=== PATIENT | male | born 1940 | race Caucasian/White ===

== ENCOUNTER 2016-09-04 10:29 | Emergency (ER) | payer MEDICARE, BC ==
--- NOTE | 2016-09-04 13:15 | RAD ---
INDICATION: Headache and syncope. COMPARISON: Comparison is made with a prior CT of the brain from January 22, 2008. TECHNIQUE: Contiguous axial sections of the brain were obtained from the skull base to the vertex without contrast. FINDINGS: The ventricles, cisterns and sulci are within normal limits. No significant focal abnormality or mass effect is seen. There is no evidence for hemorrhage. No significant focal osseous abnormality is seen. The visualized portion of the paranasal sinuses and mastoid air cells appear clear. IMPRESSION: NO EVIDENCE FOR ACUTE INTRACRANIAL ABNORMALITY.
--- NOTE | 2016-09-04 13:23 | RAD ---
INDICATION: Trauma, neck pain. COMPARISON: There are no prior studies available for comparison. TECHNIQUE: Contiguous axial sections were obtained from the skull base through the T1 vertebra. Images were reconstructed in the sagittal and coronal planes. FINDINGS: The vertebra are in normal alignment. No prevertebral soft tissue swelling or fracture is seen. At the C3-C4 level there is posterior uncinate process spurring. No spinal canal narrowing is present. There is mild neural foraminal narrowing on the right side and mild to moderate neural foraminal narrowing on the left side. At C4-C5 level there is moderate posterior uncinate process spurring which causes mild spinal canal narrowing and moderate bilateral neural foraminal narrowing. At the C5-C6 level there is moderate posterior uncinate process spurring which causes mild spinal canal narrowing and moderate bilateral neural foraminal narrowing. At the C6-C7 level there is posterior lateral uncinate process spurring toward the left side. No spinal canal narrowing is present although there is moderate neural foraminal narrowing on the left side. IMPRESSION: 1. NO EVIDENCE FOR FRACTURE OR SUBLUXATION. 2. MODERATE CERVICAL SPONDYLOSIS.
[2016-09-04 13:51] VITALS: BP 148/80
--- NOTE | 2016-09-04 20:46 | ED ---
Chirag Cox Billy, scribed for Cristobal Prajapati MD on 09/04/16 at 1210 . Head Injury - HPI Summary HPI Summary: Patient is a 75 year-old male coming to [facility] for evaluation of a head injury when he was playing tennis this morning. He states that as he was playing, he tripped and had a mechanical fall and hit the back of his head. Positive LOC lasting approximately 30 seconds, per his , who witnessed the fall. Spontaneous resolution, and the patient has returned to normal behavior, per . He reports headache but denies any neck pain or visual changes. He was nauseated earlier but that has resolved. He takes 81mg ASA daily, no other bloodthinners. - History Of Current Complaint Chief Complaint: EDHeadInjury Stated Complaint: FALL Time Seen by Provider: 09/04/16 12:00 Hx Obtained From: Patient Mechanism Of Injury: Fall From A Standing Position Onset/Duration: Started Hours Ago Severity Currently: Moderate Severity Initially: Moderate Location of Head Injury: Occipital Alleviating Factor(s): Other: - spontaneous resolution Associated Signs And Symptoms: LOC (Time In Secs./Mins/Hrs) - 30 seconds, Nausea , Headache - Allergies/Home Medications Allergies/Adverse Reactions: Allergies Allergy/AdvReac Type Severity Reaction Status Date / Time No Known Allergies Allergy Verified 04/30/14 20:45 PMH/Surg Hx/FS Hx/Imm Hx Endocrine/Hematology History: Denies: Hx Diabetes, Hx Thyroid Disease Cardiovascular History: Denies: Hx Hypertension, Hx Pacemaker/ICD Respiratory History: Reports: Hx Asthma - Childhood Denies: Hx Chronic Obstructive Pulmonary Disease (COPD) GI History: Denies: Hx Ulcer Sensory History: Reports: Hx Hearing Aid Psychiatric History: Denies: Hx Panic Disorder - Cancer History Cancer Type, Location and Year: SKIN CANCER Hx Chemotherapy: No Hx Radiation Therapy: No Hx Palliative Cancer Treatment: No Infectious Disease History: No Infectious Disease History: Denies: Hx Clostridium Difficile, Hx Hepatitis, Hx Human Immunodeficiency Virus (HIV), Hx of Known/Suspected MRSA, Hx Shingles, Hx Tuberculosis, Hx Known/ Suspected VRE, Hx Known/Suspected VRSA, History Other Infectious Disease, Traveled Outside the [place] in Last 30 Days - Family History Known Family History: Positive: Cardiac Disease - Social History Alcohol Use: Occasionally Substance Use Type: Reports: None Smoking Status (MU): Former Smoker Review of Systems Negative: Blurred Vision, Diplopia, Drainage Positive: Nausea Positive: Headache, Syncope All Other Systems Reviewed And Are Negative: Yes Physical Exam - Summary Physical Exam Summary: VITAL SIGNS: Reviewed. GENERAL: Patient is a well developed and nourished male who is lying comfortable in the stretcher. Patient is not in any acute respiratory distress. HEAD AND FACE: No signs of trauma. No ecchymosis, hematomas or skull depressions. No sinus tenderness. EYES: PERRLA, EOMI x 2, No injected conjunctiva, no nystagmus. No photophobia. EARS: Hearing grossly intact. Ear canals and tympanic membranes are within normal limits. MOUTH: Oropharynx within normal limits. NECK: Supple, trachea is midline, no adenopathy, no JVD, no carotid bruit, no c- spine tenderness, neck with full ROM. No meningeal signs, no Kernig's or brudzinskis signs. CHEST: Symmetric, no tenderness at palpation LUNGS: Clear to auscultation bilaterally. No wheezing or crackles. CVS: Regular rate and rhythm, S1 and S2 present, no murmurs or gallops appreciated. ABDOMEN: Soft, non-tender. No signs of distention. No rebound no guarding, and no masses palpated. Bowel sounds are normal. EXTREMITIES: FROM in all major joints, no edema, no cyanosis or clubbing. NEURO: Alert and oriented x 3. No acute neurological deficits. Speech is normal and follows commands. SKIN: Dry and warm Triage Information Reviewed: Yes Vital Signs On Initial Exam: Initial Vitals Temp Pulse Resp BP Pulse Ox 97.1 F 50 18 147/76 96 09/04/16 10:41 09/04/16 10:41 09/04/16 10:41 09/04/16 10:41 09/04/16 10:41 Vital Signs Reviewed: Yes - [place] Coma Scale Coma Scale Total: 15 Diagnostics - Vital Signs Vital Signs Temp Pulse Resp BP Pulse Ox 09/04/16 10:45 97.5 F 55 20 147/76 96 09/04/16 10:41 97.1 F 50 18 147/76 96 - Laboratory Lab Statement: Any lab studies that have been ordered have been reviewed, and results considered in the medical decision making process. - CT Brain CT Interpretation: No Acute Changes CT Interpretation Completed By: Radiologist Cervical Spine CT Interpretation: No Acute Changes CT Interpretation Completed By: Radiologist - EKG 1256 EKG Interpretation: sinus bradycardia 46 bpm, no STEMI Head Injury Course/Dx Assessment/Plan: Patient is a 75 year-old male coming to [facility] for evaluation of a head injury when he was playing tennis this morning. He states that as he was playing, he tripped and had a mechanical fall and hit the back of his head. Positive LOC lasting approximately 30 seconds, per his , who witnessed the fall. Spontaneous resolution, and the patient has returned to normal behavior, per . He reports headache but denies any neck pain or visual changes. He was nauseated earlier but that has resolved. He takes 81mg ASA daily, no other bloodthinners. Test results shows CT brain and c-spine showing no acute pathology. The patient has no complaints. He is ambulating in the ED with no difficulty. Therefore, the patient will be discharged home to follow up with PCP. He was requested to return to the ED with nausea, confusion, or lethargy. The patient and his understand and agree. The patient is hemodynamically stable, A&Ox3. I discussed all the findings and test results with the patient. Patient was instructed to return to the emergency room immediately if any of the symptoms return or worsens. Plan of care was discussed with the patient and understands and agrees. All questions were answered at patient satisfaction. There were no further complaints or concerns. Lung exam before discharge: CTA B /L. Good air exchange. No wheezing or crackles heard. CVS: S1 and S2 present. No murmurs appreciated. Patient is alert and oriented x 3. Patient is hemodynamically stable. Patient will be discharged home with follow up PCP in the next 2-3 days - Diagnoses Differential Diagnosis/HQI/PQRI: Cervical Sprain, Concussion Without LOC, Contusion, Intracranial Bleed Provider Diagnoses: Head contusion Discharge - Discharge Plan Condition: Stable Disposition: HOME Patient Education Materials: Scalp Contusion in Adults (ED) Referrals: Kit Barillas MD [Primary Care Provider] - The documentation as recorded by the Chirag alvares Billy accurately reflects the service I personally performed and the decisions made by me, Cristobal Prajapati MD.
== END 2016-09-04 13:50 | disposition home or self-care (01) ==
LOC: ED 10:29
DX: S00.93XA Contusion of unspecified part of head, initial encounter (principal); W01.0XXA Fall on same level from slipping, tripping and stumbling without subsequent striking against object, initial encounter; Z79.82 Long term (current) use of aspirin; Z87.891 Personal history of nicotine dependence
CPT/HCPCS: 70450; 72125; 93005; 99283

== ENCOUNTER 2019-11-01 02:48 | Inpatient (IN) ==
[2019-11-01 03:54] LABS: ABS Basophils 0.1 10^3/ul (0-0.2); ABS Eosinophils 0.3 10^3/ul (0-0.6); ABS Monocytes 0.8 10^3/ul (0-0.8); ABS Neutrophils 3.1 10^3/ul (1.5-7.7); Eosinophil % 4.6 %; Hematocrit 42 % (42-52); Hemoglobin 14.9 g/dL (14.0-18.0); Lymphocyte % 32.2 %; Mean Corpuscular HGB Conc 35 g/dL (31-36); Mean Corpuscular Hemoglobin 32 pg (27-31); Mean Corpuscular Volume 91 fL (80-94); Mean Platelet Volume 8.2 fL (7.4-10.4); Nucleated Red Blood Cells % 0.1; Platelet Count 192 10^3/uL (150-450); Red Blood Count 4.65 10^6 /uL (4.18-5.48); Red Cell Distribution Width 13 % (10-15); White Blood Count 6.3 10^3/uL (3.5-10.8)
[2019-11-01 03:59] LABS: INR 0.96 (0.82-1.09)
[2019-11-01 04:11] LABS: ALT 10 U/L (7-52); AST 15 U/L (13-39); Albumin 4.1 g/dL (3.2-5.2); Albumin/Globulin Ratio 1.6 (1-3); Alkaline Phosphatase 89 U/L (34-104); Anion Gap 7 mmol/L (2-11); BUN/Creatinine Ratio 18.8 (8-20); Blood Urea Nitrogen 19 mg/dL (6-24); CO2 Carbon Dioxide 28 mmol/L (22-32); Calcium 8.8 mg/dL (8.6-10.3); Chloride 104 mmol/L (101-111); EGFR African American 86.7 (>60); EGFR Non-African American 71.6 (>60); Globulin 2.6 g/dL (2-4); Glucose 101 mg/dL (70-100); Potassium 3.6 mmol/L (3.5-5.0); Sodium 139 mmol/L (135-145); Total Protein 6.7 g/dL (6.4-8.9)
[2019-11-01 04:38] LABS: Troponin I 0.06 ng/mL (<0.03)
[2019-11-01] MEDS ORDERED: Ondansetron 4 mg VIAL 2 MG/ML 2 ml VIAL IV PRN (05:30)
[2019-11-01] MEDS ORDERED: Heparin DRIP 25,000 UNITS BAG 25,000 UNITS/500 ML BAG IV SCH (05:30)
[2019-11-01] MEDS ORDERED: Heparin 5000 UNITS/ML 1 mL VIAL IV SCH (06:00)
[2019-11-01 06:37] LABS: Activated Partial Thrombo Time 31.9 seconds (26.0-38.0); INR 0.96 (0.82-1.09)
[2019-11-01 06:41] LABS: Troponin I 0.11 ng/mL (<0.03)
[2019-11-01 08:29] LABS: Creatine Kinase 68 U/L (10-223)
[2019-11-01 08:35] LABS: CKMB ng/mL 1.7 ng/mL (0.6-6.3)
[2019-11-01] MEDS ORDERED: NS 0.9% 1000 ml BAG 1,000 ML IV SCH (09:00)
[2019-11-01] MEDS ORDERED: Perflutren Lipid Microsphere 3 ML VIAL ONE (09:20)
[2019-11-01 09:29] LABS: CKMB ng/mL 3.2 ng/mL (0.6-6.3)
[2019-11-01 09:40] LABS: Troponin I 0.14 ng/mL (<0.03)
[2019-11-01 10:01] LABS: Creatine Kinase 73 U/L (10-223)
[2019-11-01 10:08] LABS: CKMB ng/mL 2.8 ng/mL (0.6-6.3)
[2019-11-01] MEDS ORDERED: Midazolam 5 mg/5 ml VIAL 1 mg/ml 5 ml VIAL (5 mg) ONE (10:52)
[2019-11-01] MEDS ORDERED: fentaNYL 100 mcg/2 ml 50 MCG/ML VIAL ONE (10:52)
[2019-11-01] MEDS ORDERED: Heparin 1,000 UNIT/ML 10 ml (10,000 UNITS) CATHLAB/DIALYSIS IV ONE (10:53)
[2019-11-01] MEDS ORDERED: Heparin 2 UNITS/ML 1000 mls 3,000 ML IV ONE (10:53)
[2019-11-01] MEDS ORDERED: VERAPAMIL 2.5 MG/ML 2 ML VIAL ** 5 mg/2 ml ONE (10:53)
[2019-11-01] MEDS ORDERED: Lidocaine 1% VIAL 10 MG/ML VIAL ONE (10:54)
[2019-11-01] MEDS ORDERED: nitroGLYCERIN DRIP 25,000 MCG/250 ML BTL ONE (10:54)
[2019-11-01] MEDS ORDERED: Iohexol 350 (CONTRAST) 200 ML MDV IV ONE ×3 (10:54→12:28)
[2019-11-01] MEDS ORDERED: Aspirin EC 81 mg TAB.EC (enteric coated) PO ONE (11:00)
[2019-11-01] MEDS ORDERED: Bivalirudin 250 MG VIAL ONE ×2 (12:13→12:47)
[2019-11-01] MEDS: NS 0.9% 1000 ml BAG 1,000 ML IV ONE ×2 (13:31→21:20)
[2019-11-02 07:33] LABS: BUN/Creatinine Ratio 15.2 (8-20); Calcium 8.7 mg/dL (8.6-10.3); EGFR African American 96.5 (>60); EGFR Non-African American 79.8 (>60); Potassium 3.7 mmol/L (3.5-5.0)
[2019-11-02 08:23] LABS: ABS Basophils 0.1 10^3/ul (0-0.2); ABS Eosinophils 0.1 10^3/ul (0-0.6); ABS Lymphocytes 1.2 10^3/ul (1.0-4.8); ABS Monocytes 0.9 10^3/ul (0-0.8); ABS Neutrophils 6.1 10^3/ul (1.5-7.7); Eosinophil % 1.8 %; Hematocrit 42 % (42-52); Hemoglobin 14.9 g/dL (14.0-18.0); Lymphocyte % 13.8 %; Mean Corpuscular HGB Conc 36 g/dL (31-36); Mean Corpuscular Hemoglobin 32 pg (27-31); Mean Corpuscular Volume 91 fL (80-94); Mean Platelet Volume 8.6 fL (7.4-10.4); Nucleated Red Blood Cells % 0.2; Platelet Count 200 10^3/uL (150-450); Red Blood Count 4.61 10^6 /uL (4.18-5.48); Red Cell Distribution Width 13 % (10-15); White Blood Count 8.4 10^3/uL (3.5-10.8)
[2019-11-02 12:07] VITALS: BP 111/73
== END 2019-11-02 14:00 | disposition home or self-care (01) | DRG 247 ==
LOC: ED 02:48 → MEDTELE 05:27 → ICU 08:12
PROVIDERS: ADMIT Nurse Practitioner Family; ATTEND Internal Medicine

== ENCOUNTER 2020-01-18 10:51 | Observation (INO) ==
[2020-01-18] MEDS ORDERED: fentaNYL 100 mcg/2 ml 50 MCG/ML VIAL ONE (11:39)
[2020-01-18] MEDS ORDERED: Midazolam 10 mg/10 ml VIAL 1 mg/ml 10 ml VIAL (10 mg) ONE (11:39)
[2020-01-18] MEDS ORDERED: cefTRIAXone 1 gm/50 mL NS BAG 1 GM/50 ML BAG IVPB SCH (17:30)
[2020-01-18 17:33] LABS: ABS Basophils 0.1 10^3/ul (0-0.2); ABS Eosinophils 0.1 10^3/ul (0-0.6); ABS Lymphocytes 0.5 10^3/ul (1.0-4.8); ABS Monocytes 0.7 10^3/ul (0-0.8); ABS Neutrophils 7.1 10^3/ul (1.5-7.7); Eosinophil % 0.9 %; Hematocrit 40 % (42-52); Hemoglobin 14.9 g/dL (14.0-18.0); Lymphocyte % 5.9 %; Mean Corpuscular HGB Conc 37 g/dL (31-36); Mean Corpuscular Hemoglobin 33 pg (27-31); Mean Corpuscular Volume 88 fL (80-94); Mean Platelet Volume 7.1 fL (7.4-10.4); Platelet Count 310 10^3/uL (150-450); Red Blood Count 4.59 10^6 /uL (4.18-5.48); Red Cell Distribution Width 14 % (10-15); White Blood Count 8.4 10^3/uL (3.5-10.8)
[2020-01-18 17:52] LABS: Albumin 4.2 g/dL (3.2-5.2); Albumin/Globulin Ratio 1.7 (1-3); BUN/Creatinine Ratio 11.8 (8-20); C Reactive Protein 7.32 mg/L (<8.01); EGFR African American 120.3 (>60); EGFR Non-African American 99.5 (>60); Globulin 2.5 g/dL (2-4); Potassium 4.3 mmol/L (3.5-5.0); Total Bilirubin 1.1 mg/dL (0.2-1.0); Total Protein 6.7 g/dL (6.4-8.9)
[2020-01-18] MEDS: Pantoprazole VIAL 40 MG VIAL IV SCH (20:53)
[2020-01-19 07:15] LABS: ABS Basophils 0.1 10^3/ul (0-0.2); ABS Eosinophils 0.2 10^3/ul (0-0.6); ABS Lymphocytes 0.6 10^3/ul (1.0-4.8); ABS Monocytes 0.8 10^3/ul (0-0.8); ABS Neutrophils 7.2 10^3/ul (1.5-7.7); Eosinophil % 1.8 %; Hematocrit 39 % (42-52); Hemoglobin 14.4 g/dL (14.0-18.0); Lymphocyte % 6.3 %; Mean Corpuscular HGB Conc 37 g/dL (31-36); Mean Corpuscular Hemoglobin 33 pg (27-31); Mean Corpuscular Volume 87 fL (80-94); Mean Platelet Volume 7.3 fL (7.4-10.4); Platelet Count 303 10^3/uL (150-450); Red Blood Count 4.43 10^6 /uL (4.18-5.48); Red Cell Distribution Width 13 % (10-15); White Blood Count 8.8 10^3/uL (3.5-10.8)
[2020-01-19 07:30] LABS: BUN/Creatinine Ratio 9.7 (8-20); Calcium 8.6 mg/dL (8.6-10.3); EGFR African American 128.1 (>60); EGFR Non-African American 105.9 (>60); Potassium 3.6 mmol/L (3.5-5.0)
[2020-01-19] MEDS ORDERED: Aspirin EC 81 mg TAB.EC (enteric coated) PO SCH (09:00)
[2020-01-19] MEDS: Pantoprazole VIAL 40 MG VIAL IV SCH (09:45)
[2020-01-19 12:10] VITALS: BP 138/66
== END 2020-01-19 15:05 | disposition home or self-care (01) ==
LOC: ENDO 10:51 → INTOOBSV 16:37 → SSU 16:37
PROVIDERS: ADMIT Internal Medicine; ATTEND Internal Medicine